=== PATIENT | male | born 1975 | race Caucasian/White ===

== ENCOUNTER 2023-04-18 09:49 | Emergency (ER) | payer OTHER ==
[2023-04-18] MEDS ORDERED: HYDROcodone/Acetaminophen 10/325 mg Tablet ONE (10:11)
== END 2023-04-18 11:07 | disposition home or self-care (01) ==
LOC: BURERS 09:49
DX: S22.32XA Fracture of one rib, left side, initial encounter for closed fracture (principal); F17.290 Nicotine dependence, other tobacco product, uncomplicated; V89.2XXA Person injured in unspecified motor-vehicle accident, traffic, initial encounter
CPT/HCPCS: 71250

== ENCOUNTER 2023-04-26 09:42 | Emergency (ER) | payer OTHER | END 2023-04-26 10:50 | disposition home or self-care (01) | LOC: BURERS 09:42 | DX: Z76.0 Encounter for issue of repeat prescription (principal) | CPT/HCPCS: 99283 ==